=== PATIENT | male | born 1980 | race Caucasian/White ===

== ENCOUNTER 2021-09-14 09:15 | Inpatient (IN) | payer OTHER ==
[~2021-09-14] VITALS: Ht 167.6 cm; Wt 90.7 kg
[2021-09-14] MEDS ORDERED: LORAZEPAM 0.5 MG TABLET PO ONE (09:45)
[2021-09-14] MEDS ORDERED: DEXAMETHASONE SOD PHOSPHATE 4 MG INJ IV ONE (09:45)
[2021-09-14] MEDS ORDERED: LORAZEPAM 1 MG TABLET ONE (10:16)
[2021-09-14] MEDS ORDERED: DEXAMETHASONE SOD PHOSPHATE 10 MG INJ ONE (10:17)
[2021-09-14 10:40] LABS: HEMATOCRIT 45.3 % (36.7-47.1); MEAN CORPUSCULAR VOLUME 91.7 fL (73.0-96.2); PLATELET COUNT (AUTO) 238 K/uL (152-348)
[2021-09-14 10:56] LABS: BILIRUBIN,TOTAL 0.5 mg/dL (0.2-1.0); TOTAL PROTEIN, SERUM 7.3 g/dL (6.4-8.2)
[2021-09-14] MEDS ORDERED: IV NORMAL SALINE 100 ML BAG IV ONE (11:30)
[2021-09-14] MEDS ORDERED: IV NS 1000 ML 1,000 ML IV ONE (12:00)
[2021-09-14] MEDS ORDERED: IV NORMAL SALINE 500 ML BAG IV ONE (12:30)
--- NOTE | 2021-09-14 12:36 | NUR ---
lunch tray provided for pt.
--- NOTE | 2021-09-14 15:30 | NUR ---
ARIE MARSH TOOLSMITH CALLED BACK SPOKE WITH DR LIMON WILL ACCEPT PATIENT FOR ADMISSION.
[2021-09-14] MEDS ORDERED: DEXTROSE 50% 50 ML DISP.SYRIN IV PRN (16:00)
[2021-09-14] MEDS ORDERED: ONDANSETRON 4 MG/2 ML VIAL IV PRN (16:00)
[2021-09-14] MEDS ORDERED: MAGNESIUM HYDROXIDE 30 ML LIQUID UDC PO PRN (16:00)
[2021-09-14] MEDS ORDERED: Z GUARD REMEDY PASTE 57 GM TUBE TOP PRN (16:00)
[2021-09-14] MEDS ORDERED: ACETAMINOPHEN 325 MG TABLET PO PRN (16:00)
--- NOTE | 2021-09-14 16:00 | NUR ---
PATIENT IN BED. CALL FOR REPORT NURSE WILL CALL [id number].
--- NOTE | 2021-09-14 20:00 | NUR ---
Received patient lying in bed. Established nurse-patient rapport. Pt AOX4. On 2L of O2 via NC saturating at 95%/. IV heplock on right upper arm, intact and patent. Admission interview done. Oriented patient to room, bed, O2 equipment and call light button. Accucheck done, showing blood sugar of 357mg/dl, insulin given per sliding scale order. Safety and comfort measures initiated. Will continue to monitor.
[2021-09-14 20:15] VITALS: BP 147/91
[2021-09-14] MEDS: BLOOD SUGAR DIAGNOSTIC 1 EACH STRIP VI SCH (21:00)
[2021-09-14] MEDS: ENOXAPARIN SODIUM 40 MG/0.4 ML DISP.SYRIN SQ SCH (21:09)
[2021-09-14] MEDS: INSULIN REGULAR, HUMAN 300 UNIT/3 ML VIAL SQ PRN (21:47)
[2021-09-14] MEDS: ZOLPIDEM 5 MG TABLET PO PRN (23:12)
--- NOTE | 2021-09-14 23:15 | NUR ---
Patient reported he had difficulty of sleeping, requested for sleeping medication. MD director of investigations was notified. Ambien 5mg PO, HS PRN was given as ordered.
[2021-09-15 04:25] VITALS: BP 144/96
[2021-09-15] MEDS: PANTOPRAZOLE SODIUM 40 MG TABLET.DR PO SCH (06:19)
--- NOTE | 2021-09-15 06:45 | NUR ---
Patient slept through the night with HOB of the elevated to assist with breathing. AOX4. Pt is still on 2L O2 saturating at 96%. Accucheck done, showing blood sugar of 323mg/dl, will notify incoming nurse. Patient denies chest pain and dizziness, however, he has been coughing since waking up this morning, will endorse to morning shift nurse to request for cough medication.
[2021-09-15] MEDS: BLOOD SUGAR DIAGNOSTIC 1 EACH STRIP VI SCH ×4 (06:52→20:45)
[2021-09-15 07:00] LABS: HEMATOCRIT 43.5 % (36.7-47.1); MEAN CORPUSCULAR HEMOGLOBIN 31.7 uug (23.8-33.4); MEAN CORPUSCULAR VOLUME 91.7 fL (73.0-96.2); PLATELET COUNT (AUTO) 247 K/uL (152-348)
[2021-09-15 07:15] LABS: THYROID STIMULATING HORMONE 0.419 mIU/mL (0.358-3.740)
[2021-09-15 07:44] LABS: BILIRUBIN,TOTAL 0.5 mg/dL (0.2-1.0); CREATININE 0.9 mg/dL (0.6-1.3); MAGNESIUM 3.1 mg/dL (1.8-2.4); PHOSPHOROUS 3.7 mg/dL (2.5-4.9); POTASSIUM 4.8 mmol/L (3.5-5.1); TOTAL PROTEIN, SERUM 6.8 g/dL (6.4-8.2)
--- NOTE | 2021-09-15 08:00 | NUR ---
received patient laying in bed in no apparent distress. patient is currently on 2L via n/c with spo2 at 94% and tolerating well, rr even and non-labored, no c/o sob at this time. patient currently in PUI all precautions upheld. reminded patient to use call light for help. call light within reach, side rails up x2. will monitor.
[2021-09-15] MEDS: INSULIN REGULAR, HUMAN 300 UNIT/3 ML VIAL SQ PRN ×4 (08:28→20:46)
[2021-09-15] MEDS: DEXAMETHASONE SOD PHOSPHATE 10 MG INJ IV SCH (08:29)
--- NOTE | 2021-09-15 08:52 | NUR ---
patient with v/s 155/107, p: 76, rr: 20, t: 98.4, spoo2 94% on 2l. [employer] In Process Inspector aware of BP.
[2021-09-15 08:53] VITALS: BP 155/104
[2021-09-15] MEDS ORDERED: BENZONATATE 100 MG CAPSULE PO SCH (09:45)
[2021-09-15] MEDS ORDERED: GUAIFENESIN/CODEINE 5 ML LIQUID UDC PO PRN (09:45)
[2021-09-15] MEDS ORDERED: ALBUTEROL SULFATE 8 GM HFA.AER.AD IH PRN (09:45)
[2021-09-15] MEDS ORDERED: hydrALAZINE HCL 20 MG/1 ML VIAL IV PRN (09:45)
--- NOTE | 2021-09-15 10:00 | NUR ---
new order for lisinopril, administered for elevated bp.
[2021-09-15] MEDS: LISINOPRIL 5 MG TABLET PO SCH (10:29)
[2021-09-15] MEDS: BENZONATATE 100 MG CAPSULE PO SCH ×3 (10:29→22:08)
[2021-09-15 11:38] VITALS: BP 145/92
[2021-09-15 15:36] VITALS: BP 143/89
--- NOTE | 2021-09-15 15:45 | NUR ---
patient titrated to room air currently at spo2 96% on r/a. rr even and non-labored, 0 sob at this time.
--- NOTE | 2021-09-15 18:53 | NUR ---
patient remains stable at this time. currently on r/a spo2 96%, rr even and non-labored, 0 sob. patient with v/s wnl, call light within reach, side rails up x2.
[2021-09-15] MEDS: ENOXAPARIN SODIUM 40 MG/0.4 ML DISP.SYRIN SQ SCH (20:10)
[2021-09-15] MEDS: ZOLPIDEM 5 MG TABLET PO PRN (20:20)
[2021-09-15 20:36] VITALS: BP 133/80
--- NOTE | 2021-09-15 20:58 | NUR ---
Received pt resting in bed. AAO x4. On room air, no acute distress noted. Denies SOB or CP. Denies pain/ discomfort. Due meds given as ordered. Blood sugar of 291, insulin coverage given as per sliding scale. Pt requested to discontinue accucheck and lovenox. Pt stated that he hates being pricked and hates injections. Pt was somewhat agitated when blood sugar was checked as he has been enduring it the whole day. Pt stated that he would like to take oral hypoglycemics instead. Risks and benefits explained. Notified Dr. Saldaña. Safety measures maintained. Call light and personal items within reach. Will continue to monitor.
[2021-09-15] MEDS ORDERED: ATORVASTATIN 10 MG TABLET PO SCH (21:00)
[2021-09-16 04:40] VITALS: BP 148/86
[2021-09-16] MEDS: BENZONATATE 100 MG CAPSULE PO SCH ×2 (05:40→14:30)
[2021-09-16] MEDS: PANTOPRAZOLE SODIUM 40 MG TABLET.DR PO SCH (06:12)
--- NOTE | 2021-09-16 06:27 | NUR ---
Pt slept comfortably t/o the night. On room air, no acute distress noted. No episodes of SOB. Still coughing, but routine tessalon perles seems to be helping. Remains stable. Will endorse accordingly.
[2021-09-16] MEDS: BLOOD SUGAR DIAGNOSTIC 1 EACH STRIP VI SCH (06:32)
[2021-09-16 07:20] LABS: HEMATOCRIT 44.3 % (36.7-47.1); MEAN CORPUSCULAR HEMOGLOBIN 31.7 uug (23.8-33.4); MEAN CORPUSCULAR VOLUME 90.9 fL (73.0-96.2); PLATELET COUNT (AUTO) 293 K/uL (152-348)
[2021-09-16 07:32] LABS: CREATININE 0.8 mg/dL (0.6-1.3); POTASSIUM 4.7 mmol/L (3.5-5.1)
--- NOTE | 2021-09-16 07:36 | NUR ---
Notified [employer] [employer] RANGE RIDER regarding pt's concern to discontinue accucheck and lovenox. RANGE RIDER ordered to d/c accuccheck and to continue Lovenox. Pt also ordered Metformin 500mg PO BID. Will endorse accordingly.
[2021-09-16] MEDS ORDERED: METFORMIN HCL 500 MG TABLET PO SCH (08:00)
[2021-09-16 08:48] VITALS: BP 157/101
[2021-09-16] MEDS: DEXAMETHASONE SOD PHOSPHATE 10 MG INJ IV SCH (09:01)
[2021-09-16] MEDS: LISINOPRIL 5 MG TABLET PO SCH (09:06)
[2021-09-16 10:19] LABS: LYMPHOCYTES % (MANUAL) 26 % (20-40); MONOCYTES % (MANUAL) 10 % (2-10); NEUTROPHILS % (MANUAL) 64 % (42-75)
[2021-09-16] MEDS ORDERED: METH4TAB3 PO (13:24)
[2021-09-16] MEDS ORDERED: ATOR10TA PO (13:24)
[2021-09-16] MEDS ORDERED: METF-440 PO (13:24)
[2021-09-16] MEDS ORDERED: LISI-782 PO (13:24)
[2021-09-16 13:44] VITALS: BP 157/97
[2021-09-16 16:17] VITALS: BP 136/81
--- NOTE | 2021-09-16 16:35 | NUR ---
Patient discharged back to [facility]. Spoke to disease case manager rn about arrangements. Right forearm 20 gauge removed. Catheter tip intact. No signs of bleeding noted. Vital signs stable. On room air. Tolerating well. No signs of acute distress noted. No c/o discomfort. Patient education provided. Will continue medication regimen as prescribed. Transported via cab services.
== END 2021-09-16 16:45 | disposition home or self-care (01) | DRG 137 ==
LOC: ER 09:15 → MEDSURG3 17:43
PROVIDERS: ADMIT Hospitalist; ATTEND Student in an Organized Health Care Education/Training Program
DX: U07.1 COVID-19 (principal); J96.01 Acute respiratory failure with hypoxia; J12.82 Pneumonia due to coronavirus disease 2019; E44.1 Mild protein-calorie malnutrition; E11.65 Type 2 diabetes mellitus with hyperglycemia; E66.9 Obesity, unspecified; E78.5 Hyperlipidemia, unspecified; I10 Essential (primary) hypertension; Z68.32 Body mass index [BMI] 32.0-32.9, adult; Z79.84 Long term (current) use of oral hypoglycemic drugs
CPT/HCPCS: 36415; 70030-TC; 71045; 83615; 83735; 84100; 84443; 85025; 85730; 86140; 93005; A4663; G0378; J1100; J1650; J1815; J3535; J7030; J7040